=== PATIENT | male | born 1950 | race Caucasian/White ===

== ENCOUNTER → 2020-02-03 15:25 | Outpatient (CLI) | payer MEDICARE, OTHER, SELFPAY ==
--- NOTE | 2020-02-03 | DI.RAD.S_ITS ---
PROCEDURE: XR HAND RT 2V INDICATIONS: pain at base of left thumb and trigger finger TECHNIQUE: PA and lateral views of the right hand. COMPARISON: [facility], , HAND 3V RIGHT, 11/24/2010, 10:10. FINDINGS: Bones: No acute fractures or dislocations. Carpal bones are normally aligned. No suspicious bony lesions. Mild degenerative changes are present at the 1st carpometacarpal joint, minimally progressed when compared to the prior radiographs from 11/24/2010. There are small nonspecific cortical irregularities at surrounding the 2nd, 3rd, and 4th distal interphalangeal joints with mild joint space narrowing, not significantly changed when compared to the prior exam. Mild degenerative changes are seen at the 2nd and 3rd proximal interphalangeal joints. Soft tissues: No suspicious soft tissue calcifications. IMPRESSION: 1. Mild 1st carpometacarpal joint osteoarthrosis. 2. Mild degenerative changes at the 2nd through 4th dorsal interphalangeal joints and the 2nd and 3rd proximal interphalangeal joints with superimposed small foci of cortical irregularity that are most likely related to degenerative changes rather than chronic inflammatory arthritis. The overall appearance has not significantly progressed when compared to the prior radiographs from 11/24/2010. Dictated by: Pete Galaviz M.D. on 02/03/2020 at 15:52 Approved by: Pete Galaviz M.D. on 02/03/2020 at 15:58
--- NOTE | 2020-02-03 | DI.RAD.S_ITS ---
PROCEDURE: XR HAND LT 2V INDICATIONS: pain at base of left thumb and trigger finger TECHNIQUE: PA and lateral views of the left hand. COMPARISON: [facility], , HAND 3V LEFT, 11/24/2010, 10:07. FINDINGS: Bones: No acute fractures or dislocations. Carpal bones are normally aligned. No suspicious bony lesions. Moderate degenerative changes are seen at the 1st carpometacarpal joint with joint space narrowing and marginal osteophyte formation, mildly progressed when compared to the prior radiographs from 11/24/2010. Mild joint space narrowing is seen in the 2nd and 3rd distal interphalangeal joints. No suspicious osseous erosions are seen. Soft tissues: No suspicious soft tissue calcifications. IMPRESSION: Moderate degenerative osteoarthrosis of the 1st carpometacarpal joint have progressed when compared to the prior radiographs from 2010. Mild degenerative changes at the 2nd and 3rd distal interphalangeal joints. Dictated by: Pete Galaviz M.D. on 02/03/2020 at 15:50 Approved by: Pete Galaviz M.D. on 02/03/2020 at 15:52
== END ==
PROVIDERS: Family Provider Family Medicine; PCP Internal Medicine; Referring Provider Internal Medicine; Visit Provider Internal Medicine
DX: M19.041 Primary osteoarthritis, right hand (principal); M19.042 Primary osteoarthritis, left hand; M65.322 Trigger finger, left index finger; M18.0 Bilateral primary osteoarthritis of first carpometacarpal joints; I25.10 Atherosclerotic heart disease of native coronary artery without angina pectoris
CPT/HCPCS: 73120

== ENCOUNTER → 2020-05-09 07:58 | Outpatient (CLI) | payer MEDICARE, OTHER, SELFPAY ==
[2020-05-09 08:45] LABS: Appearance Urine UA CLEAR; Bilirubin Urine UA NEGATIVE (NEGATIVE); Color Urine UA YELLOW; Glucose Urine UA NEGATIVE (Negative); Ketones Urine UA NEGATIVE (NEGATIVE); Leukocyte Esterase Urine UA NEGATIVE (NEGATIVE); Nitrite Urine UA NEGATIVE (Negative); Occult Blood Urine UA NEGATIVE (Negative); Protein Urine UA NEGATIVE (Negative); Urobilinogen Urine UA 0.2 E.U./dL (0.2); pH Urine UA 5.5 (4.5-8.0)
[2020-05-09 08:56] LABS: Bacteria Urine Few (2-10); Culture Indicated Urine Cult Not Indicated; Mucus Urine 1+ (Negative); RBC Urine 0-1/HPF (0-5/HPF); WBC Urine 0-1/HPF (0-5/HPF)
[2020-05-09 08:57] LABS: Add Manual Diff / Slide Review NO; Basophils Absolute Auto 100 /uL (0-100); Eosinophils Absolute Auto 300 /uL (0-450); Eosinophils Percent Auto 4.6 % (2-4); Hematocrit 40.9 % (41-53); Hemoglobin 13.9 g/dL (13.5-17.5); Lymphocytes Absolute Auto 1600 /uL (1100-4500); Lymphocytes Percent Auto 26.4 % (25-40); Mean Corpuscular HGB Conc 34.1 % (30-36); Mean Corpuscular Hemoglobin 28.8 PG (26-34); Mean Corpuscular Volume 84.6 fL (80-100); Monocytes Absolute Auto 600 /uL (0-900); Monocytes Percent Auto 9.2 % (3-14); Neutrophils Absolute Auto 3600 /uL (1500-7000); Neutrophils Percent Auto 58.8 % (50-75); Platelet Count 195 X10^3/uL (150-400); Red Blood Cell Count 4.84 X10^6/uL (4.5-5.9); Red Cell Distribution Width 14.3 % (11.6-14.8); White Blood Cell Count 6.2 X10^3/uL (4.5-11.0)
[2020-05-09 09:22] LABS: Alanine Aminotransferase 20 IU/L (<50); Albumin 4.1 g/dL (3.5-5.0); Albumin Globulin Ratio 1.6 (1.0-2.8); Alkaline Phosphatase 64 U/L (38-126); Aspartate Aminotransferase 22 IU/L (17-59); Bilirubin Total 0.8 mg/dL (0.2-1.3); Blood Urea Nitrogen 18 mg/dL (9-20); Calcium 9.3 mg/dL (8.4-10.2); Carbon Dioxide 30 mmol/L (22-32); Chloride 102 mmol/L (98-107); Cholesterol 140 mg/dL (140-199); Estimated Glomerular Filt Rate > 60.0 mL/min (>60); Globulin 2.5 g/dL (1.7-4.1); Glucose 149 mg/dL (80-110); HDL Cholesterol 36 mg/dL (40-60); HEMOLYSIS < 15 (0-50); LDL Cholesterol Calculated 74 mg/dL (<100); Potassium 4.6 mmol/L (3.4-5.1); Sodium 137 mmol/L (137-145); Total Protein 6.6 g/dL (6.3-8.2); Triglycerides 151 mg/dL (35-150)
[2020-05-09 09:52] LABS: Prostate Specific Antigen Scrn 1.22 ng/mL (0.1-4.0)
[2020-05-09 09:53] LABS: TSH w/ Reflex to FT4 3.93 uIU/mL (0.47-4.68)
== END ==
PROVIDERS: Family Provider Family Medicine; PCP Internal Medicine; Referring Provider Internal Medicine; Visit Provider Internal Medicine
DX: I25.10 Atherosclerotic heart disease of native coronary artery without angina pectoris (principal); I10 Essential (primary) hypertension; E78.5 Hyperlipidemia, unspecified; N52.9 Male erectile dysfunction, unspecified; Z86.010 Personal history of colon polyps; Z12.5 Encounter for screening for malignant neoplasm of prostate
CPT/HCPCS: 36415; 80053; 80061; 81001; 84443; 85025; G0103

== ENCOUNTER → 2020-05-17 15:08 | Outpatient (ROUT) | payer MEDICARE, OTHER, SELFPAY | PROVIDERS: Family Provider Family Medicine; PCP Internal Medicine; Visit Provider Internal Medicine | DX: E11.9 Type 2 diabetes mellitus without complications (principal); R82.90 Unspecified abnormal findings in urine | CPT/HCPCS: 87086 ==

== ENCOUNTER → 2020-07-14 15:38 | Outpatient (CLI) | payer MEDICARE, SELFPAY ==
[2020-07-14] MEDS: COVID-19 VACC #1, MRNA(MOD) 100 MCG/0.5 ML VIAL IM (15:46)
== END ==
PROVIDERS: PCP Internal Medicine; Visit Provider Internal Medicine
DX: Z23 Encounter for immunization (principal)
CPT/HCPCS: 0011A; 91301

== ENCOUNTER → 2020-08-10 15:28 | Outpatient (CLI) | payer MEDICARE, SELFPAY ==
[2020-08-10] MEDS: COVID-19 VACC #2, MRNA(MOD) 100 MCG/0.5 ML VIAL IM (15:38)
== END ==
PROVIDERS: PCP Internal Medicine; Visit Provider Internal Medicine
DX: Z23 Encounter for immunization (principal)
CPT/HCPCS: 0012A; 91301

== ENCOUNTER → 2022-10-25 13:04 | Outpatient (CLI) | payer MEDICARE, OTHER, SELFPAY ==
[2022-10-25 14:27] LABS: Alanine Aminotransferase 19 IU/L (<50); Albumin 4.1 g/dL (3.5-5.0); Alkaline Phosphatase 49 U/L (38-126); Aspartate Aminotransferase 19 IU/L (17-59); Bilirubin Total 0.4 mg/dL (0.2-1.3); Bilirubin Unconjugated 0.3 mg/dL (0.0-1.1); Globulin 2.1 g/dL (1.7-4.1); HEMOLYSIS < 15 (0-50); Total Protein 6.2 g/dL (6.3-8.2)
== END ==
PROVIDERS: PCP Physician Assistant; Referring Provider Podiatrist; Visit Provider Podiatrist
DX: B35.1 Tinea unguium (principal)
CPT/HCPCS: 36415; 80076

== ENCOUNTER → 2024-04-16 | Outpatient (CLI) | payer MEDICARE, OTHER, SELFPAY ==
--- NOTE | 2024-04-16 11:52 | DI.US.S_ITS ---
PROCEDURE: US ABDOMEN LIMITED INDICATIONS: EPIGASTRIC AND RIGHT SIDED ABDOMEN PAIN TECHNIQUE: Real-time scanning was performed of the abdominal and retroperitoneal organs, with image documentation. COMPARISON: None. FINDINGS: Liver: Liver is normal in size and increased in echogenicity. Gallbladder: Mildly distended. No gallstones. No wall thickening. No pericholecystic edema. Negative sonographic Ag's sign. Biliary ducts: Not well seen. Pancreas: Not well seen. Miscellaneous: No free abdominal fluid. Incidental note of a simple cyst at the inferior pole the right kidney measuring 1.1 centimeters. IMPRESSION: 1. Liver is increased in echogenicity, most consistent with hepatic steatosis. 2. Gallbladder appears mildly distended. No gallstones or gallbladder wall thickening. Dictated by: Amadou Carranza M.D. on 04/16/2024 at 14:08 Approved by: Amadou Carranza M.D. on 04/16/2024 at 14:12
== END ==
LOC: US 11:51
PROVIDERS: PCP Physician Assistant; Referring Provider Physician Assistant; Visit Provider Physician Assistant
DX: R14.2 Eructation (principal); R14.0 Abdominal distension (gaseous); R10.13 Epigastric pain; R10.11 Right upper quadrant pain
CPT/HCPCS: 76705

== ENCOUNTER → 2024-09-17 15:43 | Outpatient (CLI) | payer MEDICARE, OTHER, SELFPAY ==
--- NOTE | 2024-09-17 15:46 | DI.CT.S_ITS ---
PROCEDURE: CT SINUS SCREEN WO CON INDICATIONS: chronic pansinusitis TECHNIQUE: Noncontrast 3.0 mm axial images acquired from the frontal sinuses to the mid-sella, with coronal and sagittal reformats. For radiation dose reduction, the following was used: automated exposure control, adjustment of mA and/or kV according to patient size. COMPARISON: None. FINDINGS: Image quality: Excellent. Maxillary Sinuses: There is moderate mucosal thickening within the right inferior maxillary sinus, with mild mucosal thickening within the left inferior maxillary sinus. The superior medial proctor of the maxillary sinuses are demineralized. Ethmoid Air Cells: There is mild mucosal thickening within the ethmoid air cells. There is demineralization of the ethmoid air cell bony septations. Sphenoid Sinuses: No bony remodeling or destruction. Sinuses are clear. Frontal Sinuses: No bony remodeling or destruction. There is mild mucosal thickening within the inferior medial frontal sinuses. Ostiomeatal Complexes: The ostiomeatal complexes are nearly completely occluded. They are constitutionally narrowed and are further narrowed by soft tissue thickening. No definite Asuncion cells are seen. The ostiomeatal complexes are demineralized. Miscellaneous: Visualized intra-orbital contents are normal. No janell bullosa or paradoxical turbinate curvature. There is mild rightward nasal septal deviation. IMPRESSION: Scattered paranasal sinus disease can be seen, which is worst within the right maxillary sinus. The ostiomeatal complexes are highly narrowed. There is mild rightward nasal septal deviation. Areas of bony demineralization are seen, which are consistent with chronic sinusitis. Dictated by: Easton Guillen M.D. on 09/17/2024 at 16:49 Approved by: Easton Guillen M.D. on 09/17/2024 at 16:51
== END ==
PROVIDERS: PCP Physician Assistant; Referring Provider Physician Assistant; Visit Provider Otolaryngology
DX: J32.4 Chronic pansinusitis (principal); J34.2 Deviated nasal septum
CPT/HCPCS: 70486

== ENCOUNTER → 2025-03-31 06:39 | Outpatient (CLI) | payer MEDICARE, OTHER, SELFPAY ==
--- NOTE | 2025-03-31 06:42 | DI.US.S_ITS ---
PROCEDURE: US RENAL COMPLETE INDICATIONS: CKD stage 3A TECHNIQUE: Real-time scanning was performed of the kidneys and bladder, with image documentation. COMPARISON: None. FINDINGS: Kidneys: Diffuse increased echogenicity of the kidneys bilaterally, medical renal disease. Kidneys are normal in size. Right kidney measures 11.4 cm long; left kidney measures 11.2 cm long. Right renal cortical thickness is 1.5 cm; left renal cortical thickness is 1.6 cm. 1.5 cm cyst right inferior pole. 1.8 cm cyst superior pole on the left. No hydronephrosis or nephrolithiasis. No suspicious solid mass lesions. Bladder: Pre-void bladder volume is 36 mL. Post-void residual is 0 mL. Pre- void images demonstrate no intraluminal masses or stones. On pre-void images, bilateral ureteral jets are noted with color Doppler interrogation. Miscellaneous: No free pelvic fluid. IMPRESSION: Increased renal cortical echogenicity bilaterally, medical renal disease. No hydronephrosis. Bilateral renal cysts. Dictated by: Al Villafana M.D. on 03/31/2025 at 8:59 Approved by: Al Villafana M.D. on 03/31/2025 at 9:03
== END ==
PROVIDERS: PCP Physician Assistant; Referring Provider Physician Assistant; Visit Provider Family Medicine
DX: I12.9 Hypertensive chronic kidney disease with stage 1 through stage 4 chronic kidney disease, or unspecified chronic kidney disease (principal); N18.31 Chronic kidney disease, stage 3a; Z95.5 Presence of coronary angioplasty implant and graft; E11.22 Type 2 diabetes mellitus with diabetic chronic kidney disease; N28.1 Cyst of kidney, acquired
CPT/HCPCS: 76770